=== PATIENT | female | born 1995 | race Hispanic/Latino ===

== ENCOUNTER 2023-09-10 22:40 | Emergency (ER) | payer MEDICAID, SELFPAY ==
[2023-09-11] MEDS ORDERED: Fluconazole 100 MG TAB ONE ×2 (01:27→01:29)
== END 2023-09-11 01:36 | disposition home or self-care (01) ==
LOC: ERS 22:40
DX: L30.4 Erythema intertrigo (principal); B37.2 Candidiasis of skin and nail
CPT/HCPCS: 99283